=== PATIENT | female | born 1980 | race Caucasian/White ===

== ENCOUNTER 2019-08-12 15:30 | Emergency (ER) | payer OTHER, SELFPAY ==
[2019-08-12 15:37] VITALS: BP 120/60; PULSE 83; RESP 20; TEMP 36.6; O2SAT 99
--- NOTE | 2019-08-12 15:50 | ED.URI ---
HPI - URI/Sore Throat General Chief Complaint: Upper Respiratory Infection Stated Complaint: ear pain/cough Time Seen by Provider: 08/12/19 15:50 Source: patient and RN notes reviewed History of Present Illness HPI Narrative: Patient is a 39-year-old female that presents the urgent care with complaints of right ear pressure for 2 days and postnasal drainage and morning cough since Thursday. Patient states that she has been using Tylenol [id number] for ear pressure. Patient states that she has a history of right ear rupture. Patient denies of any fever, chills, nausea, vomiting. Patient is taken loratadine 1 time since Thursday. Patient is also use warm compress to the right ear which did improve some of the pain. No other acute complaints. No acute distress noted. Patient read the plan of care. Related Data Home Medications Medication Instructions Recorded Confirmed acetazolamide 250 mg PO BID 01/28/19 08/12/19 buspirone 10 mg PO BID 01/28/19 08/12/19 venlafaxine [Effexor XR] 150 mg PO QPM 01/28/19 08/12/19 alendronate-vitamin D3 2,000 unit PO DAILY 04/21/19 08/12/19 Allergies Allergy/AdvReac Type Severity Reaction Status Date / Time amoxicillin Allergy Unknown Hives Verified 08/12/19 15:47 ciprofloxacin Allergy Unknown Swelling Verified 08/12/19 15:47 Penicillins Allergy Unknown Hives Verified 08/12/19 15:47 Review of Systems Review of Systems: Narrative: CONSTITUTIONAL: Denies fever, chills, or sweats. EYES: Denies visual changes, redness, or discharge. ENT: Reports of right otalgia and postnasal drainage CARDIOVASCULAR: Denies chest pain, palpitations, or edema. RESPIRATORY: Reports of morning cough without dyspnea GASTROINTESTINAL: Denies abdominal pain, nausea, vomiting, or diarrhea. GENITOURINARY: Denies dysuria or hematuria. SKIN: Denies rash or itching. MUSCULOSKELETAL: Denies back pain, joint pain, or myalgia. NEUROLOGIC: Denies headache, numbness, or weakness. All other systems reviewed are negative, except as documented in HPI. [facility] Social History Social History Smoking status: Current every day smoker Comments At the time of my signature, I reviewed and agree with the nursing past medical, surgical, social, and family history. There is no relevant family history pertinent to the patient complaint. Exam Narrative: Exam Narrative: GENERAL: This is a well-nourished, well-developed patient, in no apparent distress. HEAD: normocephalic, atraumatic. EYES: PERRL. Sclera clear/white. Vision is grossly intact. EARS: External ears normal, auditory canals clear and without drainage, moderate fluid noted behind right TM without otitis, left TMs normal without perforation. Hearing grossly intact. NOSE: External nose normal with no obvious nasal discharge, nares without redness, no rhinorrhea. THROAT: Mucous membranes moist, posterior pharynx clear. NECK: Neck supple CARDIOVASCULAR: Regular rate and rhythm without murmurs, gallops, or rubs. RESPIRATORY: Clear to auscultation. Breath sounds equal bilaterally. No wheezes, rales, or rhonchi. SKIN: warm, intact with no suspicious lesions or rash, good texture and turgor. NEURO: awake, alert, and oriented to person, place and time. There were no obvious focal neurologic abnormalities. EXTREMITIES: No clubbing, cyanosis, or edema. Course Vital Signs Vital signs: Vital Signs Temperature 97.8 F 08/12/19 15:37 Pulse Rate 83 08/12/19 15:37 Respiratory Rate 20 08/12/19 15:37 Blood Pressure 120/60 08/12/19 15:37 Pulse Oximetry 99 08/12/19 15:37 Temperature 97.8 F 08/12/19 15:37 Pulse Rate 83 08/12/19 15:37 Respiratory Rate 20 08/12/19 15:37 Blood Pressure 120/60 08/12/19 15:37 Pulse Oximetry 99 08/12/19 15:37 Reviewed MDM - URI/Sore Throat MDM Narrative Medical decision making narrative: Advised the patient to use Flonase and loratadine for symptom relief. If you develop
== END 2019-08-12 16:09 | disposition home or self-care (01) ==
PROVIDERS: Emergency Provider Nurse Practitioner Family; PCP Internal Medicine
DX: H92.02 Otalgia, left ear (principal); F17.290 Nicotine dependence, other tobacco product, uncomplicated
CPT/HCPCS: 99213; G0463

== ENCOUNTER 2019-11-07 09:59 | Emergency (ER) | payer OTHER, SELFPAY ==
[2019-11-07 10:05] VITALS: BP 106/70; PULSE 96; RESP 16; TEMP 36.7; O2SAT 100
--- NOTE | 2019-11-07 10:13 | ED.ABDPAIN ---
HPI - Abdominal Pain General Chief Complaint: Abdominal Pain Stated Complaint: sharp stomach pain/no appetite/diarrhea Time Seen by Provider: 11/07/19 10:13 Source: patient and RN notes reviewed Mode of arrival: ambulatory Limitations: no limitations History of Present Illness HPI narrative: This is a 39 years old female presents to the office for an evaluation of abdominal pain and diarrhea since last night. Pain started approximately in the evening, described as sharp shooting pain with decreased appetite and diarrhea. She woke up this morning with less of pain described as dull type pain. However she still have diarrhea so she took an antidiarrhea and went to work. Her boss sent her here to get a work note. Her last meal was yesterday breakfast with toast and butter. She works at [employer]; so she eats there as well. Her boyfriend is sick with similar symptoms. Denies eating out or direct contact with COVID positive people. Related Data Home Medications Medication Instructions Recorded Confirmed acetazolamide 250 mg PO BID 01/28/19 08/12/19 buspirone 10 mg PO BID 01/28/19 08/12/19 venlafaxine [Effexor XR] 150 mg PO QPM 01/28/19 08/12/19 gabapentin 300 mg PO HS 11/07/19 11/07/19 Allergies Allergy/AdvReac Type Severity Reaction Status Date / Time amoxicillin Allergy Unknown Hives Verified 11/07/19 10:14 ciprofloxacin Allergy Unknown Swelling Verified 11/07/19 10:14 Penicillins Allergy Unknown Hives Verified 11/07/19 10:14 Review of Systems Review of Systems: Narrative: CONSTITUTIONAL: Denies fever. Reports feeling tired and wants to lay down. ENT: Denies rhinorrhea, congestion, sore throat, otalgia. CARDIOVASCULAR: Denies chest pain, palpitation RESPIRATORY: Denies dyspnea, wheezing, cough GASTROINTESTINAL: Reports abdominal pain, nausea, diarrhea; denies blood stools GENITOURINARY: Denies urinary symptoms or discharge SKIN: Denies rash MUSCULOSKELETAL: Denies acute back pain NEUROLOGIC: Denies lightheaded/near syncope All other systems reviewed are negative, except as documented in HPI. [facility] Past Medical History Medical History Anxiety Mastitis Migraines PTSD (post-traumatic stress disorder) Surgical History Surgical History H/O Spinal surgery C3-4 fusion Hx of appendectomy Family History Family History Unknown No problems noted. Social History Social History Smoking status: Current every day smoker Comments At time of signature, I agree with nursing past medical, surgical, social and family history. There is no relevant family history pertinent to the presenting complaint. Exam Narrative: Exam Narrative: GENERAL: This is a well-nourished, well-developed patient, in no apparent distress. CARDIOVASCULAR: Regular rate and rhythm without murmurs, gallops, or rubs. RESPIRATORY: Clear to auscultation. Breath sounds equal bilaterally. No wheezes, rales, or rhonchi. GASTROINTESTINAL: Abdomen soft; tenderness throughout, nondistended. Bowel sounds are active. No hepato-splenomegaly, or palpable masses. NO guarding. SKIN: warm, intact with no suspicious lesions or rash, good texture and turgor. NEURO: awake, alert, and oriented to person, place and time. There were no obvious focal neurologic abnormalities. Steady gait [place] Scale Eye Opening: Spontaneous 4 [place] Scale Motor: Obeys Commands 6 [place] Scale Verbal: Oriented 5 Course Vital Signs Vital signs: Vital Signs Temperature 98.1 F 11/07/19 10:05 Pulse Rate 96 11/07/19 10:05 Respiratory Rate 16 11/07/19 10:05 Blood Pressure 106/70 11/07/19 10:05 Pulse Oximetry 100 11/07/19 10:05 Temperature 98.1 F 11/07/19 10:05 Pulse Rate 96 11/07/19 10:05 Respiratory Rate
== END 2019-11-07 10:31 | disposition home or self-care (01) ==
PROVIDERS: Emergency Provider Nurse Practitioner; PCP Internal Medicine
DX: R19.7 Diarrhea, unspecified (principal); F17.200 Nicotine dependence, unspecified, uncomplicated; F41.9 Anxiety disorder, unspecified; F43.10 Post-traumatic stress disorder, unspecified
CPT/HCPCS: 99211; G0463

== ENCOUNTER 2021-04-23 09:24 | Emergency (ER) | payer OTHER, SELFPAY ==
--- NOTE | ~2021-04-23 | XR_ITS ---
EXAMINATION: XR chest 2V EXAM DATE: 04/23/2021 10:08 INDICATION: Bacterial Pnuemonia Early Mar. (+)Covid Mid Apr.20 . TECHNIQUE: Frontal and lateral projections of the chest obtained and reviewed. Comparison is made to prior examination from 04/21/2019. FINDINGS: The lungs are clear. There are no pleural effusions. The cardiomediastinal silhouette is within normal limits. There is no pneumothorax suspected. The bones and soft tissues are unremarkab le. Cervical fusion hardware. IMPRESSION: No acute cardiopulmonary findings. Reviewed, dictated and finalized at location A. [employer]
[2021-04-23 09:34] VITALS: BP 119/63; PULSE 92; RESP 16; TEMP 36.7; O2SAT 100
--- NOTE | 2021-04-23 09:47 | ED.URI ---
HPI - URI/Sore Throat General Chief Complaint: Upper Respiratory Infection Stated Complaint: Ear Pain/Chest Congestion Time Seen by Provider: 04/23/21 09:53 Source: patient and RN notes reviewed Mode of arrival: ambulatory Limitations: no limitations History of Present Illness HPI Narrative: 41-year-old female with history of asthma presents with concern for ear pain. She also reports continued cough and shortness of breath. Reports she had pneumonia in the beginning of March, was not diagnosed with Covid in the middle of March. Reports she has had symptoms all month long. She reports she has been using her albuterol inhaler 3 times a day at least in her nebulizer 2 times a day, she last used her nebulizer this morning at 6 AM. She denies nasal congestion or rhinorrhea. MD elicited complaint: cough and sore throat Related Data Home Medications Medication Instructions Recorded Confirmed buspirone mg 04/23/21 diclofenac sodium PO 04/23/21 gabapentin 04/23/21 sumatriptan succinate mg PO 04/23/21 trazodone 04/23/21 venlafaxine mg PO 04/23/21 venlafaxine mg PO 04/23/21 Allergies Allergy/AdvReac Type Severity Reaction Status Date / Time amoxicillin Allergy Unknown Hives Verified 04/23/21 09:35 ciprofloxacin Allergy Unknown Swelling Verified 04/23/21 09:35 Penicillins Allergy Unknown Hives Verified 04/23/21 09:35 Review of Systems Review of Systems: CONSTITUTIONAL: Reports malaise. Denies chills, sweats, or fever. EYES: Denies visual changes, redness, or discharge. ENT: Denies rhinorrhea, congestion, sinus pain, and sore throat. Reports right ear pain, decreased hearing CARDIOVASCULAR: Denies chest pain, palpitations, or edema. RESPIRATORY: Reports cough, chest congestion, dyspnea. GASTROINTESTINAL: Denies abdominal pain, nausea, vomiting, diarrhea SKIN: Denies rash or itching. MUSCULOSKELETAL: Denies myalgia. NEUROLOGIC: Denies headache. All systems reviewed & are unremarkable except as noted in HPI and below PMFSH Past Medical History Medical History (Updated 04/23/21 @ 10:40 by Gracie Galeas NP) Anxiety Mastitis Migraines PTSD (post-traumatic stress disorder) Surgical History Surgical History H/O Spinal surgery C3-4 fusion Hx of appendectomy Family History Family History Unknown No problems noted. Social History Social History Smoking status: Current every day smoker Comments At time of signature, agree with nursing past medical, surgical, social and family history. There is no relevant family history pertinent to the presenting complaint Exam Narrative: GENERAL: Well-appearing, well-nourished, and in no acute distress. HEAD: Normocephalic EYES: PERRLA, conjunctivae clear ENT: Nares clear, clear discharge. Mucous membranes moist. TM pearly de jesus with sharp light reflex bilaterally; no tragal tenderness. Oropharynx not erythematous without lesions. Tonsils not enlarged and without exudate, no drooling, no hoarseness, no trismus, uvula midline. NECK: Supple. No lymphadenopathy CHEST: Scattered rhonchi, scattered inspiratory and expiratory wheeze. Breath sounds equal. No rales, or stridor. Exertional and conversational dyspnea, upper airway rhonchi HEART: Regular rate and rhythm. No murmur heard. SKIN: Warm, dry, no rash. NEURO: Alert and oriented x3. PSYCH: Normal mood and affect Course Course Emergency Course: Patient is aware of diagnosis, understands and agrees to treatment plan. Anticipatory guidance given. Patient agrees to follow-up as directed and is aware of reasons to seek care at the emergency department. Portions of this record may have been created with voice recognition software Level of Care: Express Care Visit Reevaluation(s) Reevaluation #1: Lung sounds proved, aeration improved. Patient's conv
[2021-04-23 10:15] VITALS: PULSE 98; RESP 30; O2SAT 98
[2021-04-23] MEDS: methylPREDNISolone SOD SUCC 125 MG VIAL IM (10:20)
[2021-04-23] MEDS: ALBUTEROL SULFATE NEB 2.5 MG/3 ML INH INHALATION (10:24)
[2021-04-23] MEDS: IPRATROPIUM BR 0.02% INH SOLN 0.5 MG/2.5 ML VIAL INHALATION (10:24)
[2021-04-23 10:50] VITALS: PULSE 99; RESP 20; O2SAT 99
== END 2021-04-23 10:50 | disposition home or self-care (01) ==
PROVIDERS: Emergency Provider Nurse Practitioner; PCP Internal Medicine
DX: J40 Bronchitis, not specified as acute or chronic (principal); J45.909 Unspecified asthma, uncomplicated; F41.9 Anxiety disorder, unspecified; F17.200 Nicotine dependence, unspecified, uncomplicated
CPT/HCPCS: 71046; 94640; 96372; 99213; G0463; J2930

== ENCOUNTER 2022-03-03 12:57 | Emergency (ER) | payer OTHER, SELFPAY ==
[2022-03-03 13:31] VITALS: BP 121/75; PULSE 88; RESP 18; TEMP 36.3; O2SAT 99
--- NOTE | 2022-03-03 13:34 | ED.URI ---
HPI - URI/Sore Throat General Chief Complaint: Upper Respiratory Infection Stated Complaint: ears congestion Time Seen by Provider: 03/03/22 13:34 History of Present Illness HPI Narrative: Patient presents with right ear discomfort cough and congestion. Patient denies any shortness of breath no fever patient is a smoker and states she has been taking Tylenol cold and Sinus [id number] for her symptoms. Patient reports her symptoms started approximately 7 days ago. Related Data Home Medications Medication Instructions Recorded Confirmed buspirone 15 mg tablet 15 mg PO BID 04/23/21 03/03/22 diclofenac sodium 75 mg 75 mg PO DAILY 04/23/21 03/03/22 tablet,delayed release venlafaxine 150 mg 150 mg PO DAILY 04/23/21 03/03/22 capsule,extended release 24 hr venlafaxine 75 mg capsule,extended 75 mg PO DAILY 04/23/21 03/03/22 release 24 hr acetazolamide 250 mg tablet 250 mg BID 03/03/22 03/03/22 Allergies Allergy/AdvReac Type Severity Reaction Status Date / Time amoxicillin Allergy Unknown Hives Verified 03/03/22 13:28 ciprofloxacin Allergy Unknown Swelling Verified 03/03/22 13:28 Penicillins Allergy Unknown Hives Verified 03/03/22 13:28 Review of Systems Review of Systems: CONSTITUTIONAL: Denies chills, or sweats. Reports fever and generalized body aches EYES: Denies visual changes, redness, or discharge. ENT: Denies otalgia. Reports nasal congestion runny nose and sore throat CARDIOVASCULAR: Denies chest pain, palpitations, or edema. RESPIRATORY: Denies dyspnea. Reports occasional cough GASTROINTESTINAL: Denies abdominal pain, nausea, vomiting, or diarrhea. GENITOURINARY: Denies dysuria or hematuria. SKIN: Denies rash or itching. MUSCULOSKELETAL: Denies back pain, joint pain, or myalgia. Reports generalized body aches NEUROLOGIC: Denies headache, numbness, or weakness. PSYCHIATRIC: Denies anxiety or depression. [facility] Past Medical History Medical History (Updated 03/03/22 @ 13:40 by SHANDA Castro) Anxiety Mastitis Migraines PTSD (post-traumatic stress disorder) Surgical History Surgical History H/O Spinal surgery C3-4 fusion Hx of appendectomy Family History Family History Unknown No problems noted. Social History Social History Smoking status: Current every day smoker Comments At time of signature, agree with nursing past medical, surgical, social and family history. There is no relevant family history pertinent to the presenting complaint Exam Narrative: The patient is a well-developed, well-nourished in no acute distress. SKIN: Skin is warm and dry without erythema, swelling or exudate. There is good turgor. No tenting. HEAD: Atraumatic. Normocephalic. No temporal or scalp tenderness. EYES: Moist and bright. Sclera and conjunctivae normal. No discharge. PERRLA. Extraocular motions intact. Gross visual acuity intact. EARS: Pinna is normal shape and contour. Clear external auditory canals. TM pearly [place] with good cone of light, no erythema or suppuration. Bilateral cerumen noted no gross hearing deficit. NOSE: pink, moist mucosa with good air movement. Clear rhinorrhea without nasal flaring. Septum midline. Mild maxillary sinus pressure and tenderness Mouth: moist mucous membranes. THROAT; mild erythema noted to posterior oropharynx with moderate postnasal drainage. Without exudate or ulceration.. Uvula midline. Normal movement of soft palate. NECK: Supple and nontender with full range of motion without discomfort. No meningeal signs. LUNGS: Equal and bilateral breath sounds without wheezes, rales or rhonchi. CHEST: The chest wall is without retractions or use of accessory muscles. HEART: Has a regular rate and rhythm without murmur, gallops, click or rub. ABDOMEN: Soft, nontender with positive active bowel azam
== END 2022-03-03 13:49 | disposition home or self-care (01) ==
PROVIDERS: Emergency Provider Nurse Practitioner Family; PCP Internal Medicine
DX: J32.9 Chronic sinusitis, unspecified (principal); J40 Bronchitis, not specified as acute or chronic; F41.9 Anxiety disorder, unspecified; F17.290 Nicotine dependence, other tobacco product, uncomplicated
CPT/HCPCS: 99213; G0463

== ENCOUNTER 2022-08-25 14:46 | Emergency (ER) | payer OTHER, SELFPAY ==
[2022-08-25 14:57] VITALS: BP 120/67; PULSE 90; RESP 18; TEMP 36.5; O2SAT 100
--- NOTE | 2022-08-25 15:59 | ED.URI ---
HPI - URI/Sore Throat General Chief Complaint: Upper Respiratory Infection Stated Complaint: Sore Throat Time Seen by Provider: 08/25/22 15:59 Source: patient, RN notes reviewed and old records reviewed Mode of arrival: ambulatory Limitations: no limitations History of Present Illness HPI Narrative: 42-year-old female presents to [facility] with complaints of sore throat and headache for 2 days has felt feverish and has noted white spots on her tonsils. Patient reports that she took home COVID test that was negative. Patient has been taking Ibuprofen for her discomfort and fevers. Patient denies any cough, ear pain or any acute cough or shortness of breath. MD elicited complaint: sore throat Onset (ago): day(s) (2) Pain scale (0-10): 5 Treatments prior to arrival: ibuprofen Related Data Home Medications Medication Instructions Recorded Confirmed buspirone 15 mg tablet 15 mg PO BID 04/23/21 08/25/22 diclofenac sodium 75 mg 75 mg PO DAILY 04/23/21 08/25/22 tablet,delayed release venlafaxine 150 mg 150 mg PO DAILY 04/23/21 08/25/22 capsule,extended release 24 hr venlafaxine 75 mg capsule,extended 75 mg PO DAILY 04/23/21 08/25/22 release 24 hr acetazolamide 250 mg tablet 250 mg BID 03/03/22 08/25/22 gabapentin 300 mg capsule 300 mg PO HS 08/25/22 08/25/22 trazodone 150 mg tablet 150 mg PO HS PRN Sleep 08/25/22 08/25/22 Allergies Allergy/AdvReac Type Severity Reaction Status Date / Time amoxicillin Allergy Unknown Hives Verified 08/25/22 15:24 ciprofloxacin Allergy Unknown Swelling Verified 08/25/22 15:24 Penicillins Allergy Unknown Hives Verified 08/25/22 15:24 Review of Systems Review of Systems: CONSTITUTIONAL: Reportsmalaise, chills, sweats, or fever. EYES: Denies visual changes, redness, or discharge. ENT: Reports rhinorrhea, congestion,no sinus pain,no otalgia positive for sore throat. CARDIOVASCULAR: Denies chest pain, palpitations, or edema. RESPIRATORY: Reports no cough.? Denies dyspnea. GASTROINTESTINAL: Denies abdominal pain, nausea, vomiting, diarrhea SKIN: Denies rash or itching. MUSCULOSKELETAL: Denies myalgia. NEUROLOGIC: Reports headache. All systems reviewed & are unremarkable except as noted in HPI and below PMFSH Past Medical History Medical History Anxiety Mastitis Migraines PTSD (post-traumatic stress disorder) Surgical History Surgical History H/O Spinal surgery C3-4 fusion Hx of appendectomy Family History Family History Unknown No problems noted. Social History Social History Smoking status: Current every day smoker Comments At time of signature, agree with nursing past medical, surgical, social and family history. There is no relevant family history pertinent to the presenting complaint Exam Narrative: GENERAL: Well-appearing, well-nourished, and in no acute distress. HEAD: Normocephalic EYES: PERRLA, conjunctivae clear ENT: Nares clear, turbinates edematous and erythematous, clear discharge. Mucous membranes moist. TM pearly de jesus with dull light reflex bilaterally; no tragal tenderness. Oropharynx erythematous without lesions. Tonsils red enlarged and with white exudate, no drooling, no hoarseness, no trismus, uvula midline. some post nasal drainage NECK: Supple. lymphadenopathy CHEST: Clear to auscultation, breath sounds equal. No wheezing, rhonchi, rales, or stridor. No respiratory distress, speaks in full sentences. SAO2 100% on room air HEART: Regular rate and rhythm. No murmur heard. SKIN: Warm, dry, no rash. NEURO: Alert and oriented x3. PSYCH: Normal mood and affect Course Course Emergency Course: Patient is aware of diagnosis, understands and agrees to treatment plan.? Tracey garcia
== END 2022-08-25 16:10 | disposition home or self-care (01) ==
PROVIDERS: Emergency Provider Registered Nurse; PCP Internal Medicine
DX: J02.0 Streptococcal pharyngitis (principal); F17.200 Nicotine dependence, unspecified, uncomplicated; F41.9 Anxiety disorder, unspecified; F43.10 Post-traumatic stress disorder, unspecified
CPT/HCPCS: 87880; 99213; G0463

== ENCOUNTER 2022-10-25 17:10 | Emergency (ER) | payer OTHER, SELFPAY ==
[2022-10-25 17:17] VITALS: BP 125/87; PULSE 79; RESP 20; TEMP 37.2; O2SAT 100
--- NOTE | 2022-10-25 17:26 | ED.DIZZY ---
HPI - Dizziness General Chief Complaint: Dizziness Stated Complaint: Headache;dizzy;nausea History of Present Illness HPI Narrative: Patient presents with dizziness, headache Clear liquids for the next 8-10 hours, then advance to a bland diet as tolerated A bland diet can consist of--BRAT diet which is bananas, rice, applesauce, and toast Avoid fried, greasy, fatty, fried foods Avoid caffeine, nicotine, and alcohol Return to your regular diet in the next 3-4 days Medication as directed for nausea and vomiting -If you have any worsening of symptoms or any other concerns please go to the ED immediately.. 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 Patient states she woke up this morning feeling poorly and missed work. Patient states she does not feel she can go to work tomorrow either Related Data Home Medications Medication Instructions Recorded Confirmed buspirone 15 mg tablet 15 mg PO BID 04/23/21 10/25/22 diclofenac sodium 75 mg 75 mg PO DAILY 04/23/21 10/25/22 tablet,delayed release venlafaxine 150 mg 150 mg PO DAILY 04/23/21 10/25/22 capsule,extended release 24 hr venlafaxine 75 mg capsule,extended 75 mg PO DAILY 04/23/21 10/25/22 release 24 hr acetazolamide 250 mg tablet 250 mg BID 03/03/22 10/25/22 gabapentin 300 mg capsule 300 mg PO HS 08/25/22 10/25/22 trazodone 150 mg tablet 150 mg PO HS PRN Sleep 08/25/22 10/25/22 Allergies Allergy/AdvReac Type Severity Reaction Status Date / Time amoxicillin Allergy Unknown Hives Verified 10/25/22 17:25 ciprofloxacin Allergy Unknown Swelling Verified 10/25/22 17:25 Penicillins Allergy Unknown Hives Verified 10/25/22 17:25 Review of Systems Review of Systems: CONSTITUTIONAL: Denies chills, or sweats. Reports fever and generalized body aches EYES: Denies visual changes, redness, or discharge. ENT: Denies otalgia. Reports nasal congestion runny nose and sore throat CARDIOVASCULAR: Denies chest pain, palpitations, or edema. RESPIRATORY: Denies dyspnea. Reports occasional cough GASTROINTESTINAL: Denies abdominal pain, nausea, vomiting, or diarrhea. GENITOURINARY: Denies dysuria or hematuria. SKIN: Denies rash or itching. MUSCULOSKELETAL: Denies back pain, joint pain, or myalgia. Reports generalized body aches NEUROLOGIC: Denies headache, numbness, or weakness. PSYCHIATRIC: Denies anxiety or depression. [facility] Past Medical History Medical History (Updated 10/25/22 @ 17:31 by SHANDA Castro) Anxiety Mastitis Migraines PTSD (post-traumatic stress disorder) Surgical History Surgical History H/O Spinal surgery C3-4 fusion Hx of appendectomy Family History Family History Unknown No problems noted. Social History Social History Smoking status: Current every day smoker Comments At time of signature, agree with nursing past medical, surgical, social and family history. There is no relevant family history pertinent to the presenting complaint Exam Narrative: The patient is a well-developed, well-nourished in no acute distress. SKIN: Skin is warm and dry without erythema, swelling or exudate. There is good turgor. No tenting. HEAD: Atraumatic. Normocephalic. No temporal or scalp tenderness. EYES: Moist and bright. Sclera and conjunctivae normal. No discharge. PERRLA. Extraocular motions intact. Gross visual acuity intact. EARS: Pinna is normal shape and contour. Clear external auditory canals. TM pearly [place] with good cone of light, no erythema or suppuration. Bilateral cerumen noted no gross hearing deficit. NOSE: pink, moist mucosa with good air movement. Clear rhinorrhea without nasal flaring. Septum midline. Mouth: moist mucous membranes. THROAT; mild erythema noted to po
== END 2022-10-25 17:35 | disposition home or self-care (01) ==
PROVIDERS: Emergency Provider Nurse Practitioner Family; PCP Internal Medicine
DX: E86.0 Dehydration (principal); F17.200 Nicotine dependence, unspecified, uncomplicated; F41.9 Anxiety disorder, unspecified; F43.10 Post-traumatic stress disorder, unspecified
CPT/HCPCS: 99213; G0463

== ENCOUNTER 2022-12-17 16:18 | Emergency (ER) | payer OTHER, SELFPAY ==
[2022-12-17 16:25] VITALS: BP 126/81; PULSE 78; RESP 22; TEMP 36.6; O2SAT 99
--- NOTE | 2022-12-17 16:30 | ED.URI ---
HPI - URI/Sore Throat General Chief Complaint: Upper Respiratory Infection Stated Complaint: Chest Congestion Time Seen by Provider: 12/17/22 16:34 Source: patient and RN notes reviewed Mode of arrival: ambulatory Limitations: no limitations History of Present Illness HPI Narrative: 42-year-old female presents with concern for cough, wheezing, chest congestion. Reports she started feeling sick about 3 days ago, symptoms got worse today. She denies fever. Reports history of asthma and bronchitis. MD elicited complaint: cough Related Data Allergies Allergy/AdvReac Type Severity Reaction Status Date / Time amoxicillin Allergy Unknown Hives Verified 12/17/22 16:38 ciprofloxacin Allergy Unknown Swelling Verified 12/17/22 16:38 Penicillins Allergy Unknown Hives Verified 12/17/22 16:38 Review of Systems Review of Systems: CONSTITUTIONAL: Reports malaise. Denies chills, sweats, or fever. EYES: Denies visual changes, redness, or discharge. ENT: Reports rhinorrhea, congestion, sore throat. Denies sinus pain, otalgia CARDIOVASCULAR: Denies chest pain, palpitations, or edema. RESPIRATORY: Reports cough, chest congestion, dyspnea. GASTROINTESTINAL: Denies abdominal pain, nausea, vomiting, diarrhea SKIN: Denies rash or itching. MUSCULOSKELETAL: Reports myalgia. NEUROLOGIC: Denies headache. All systems reviewed & are unremarkable except as noted in HPI and below PMFSH Past Medical History Medical History (Updated 12/17/22 @ 16:48 by Gracie Galeas NP) Anxiety Mastitis Migraines PTSD (post-traumatic stress disorder) Surgical History Surgical History H/O Spinal surgery C3-4 fusion Hx of appendectomy Family History Family History Unknown No problems noted. Social History Social History Smoking status: Current every day smoker Comments At time of signature, agree with nursing past medical, surgical, social and family history. There is no relevant family history pertinent to the presenting complaint Exam Narrative: GENERAL: Nontoxic-appearing and in no acute distress. HEAD: Normocephalic EYES: PERRLA, conjunctivae clear ENT: Nares clear. Mucous membranes moist. TM pearly de jesus with dull light reflex bilaterally; no tragal tenderness. Oropharynx not erythematous without lesions. Tonsils not enlarged and without exudate, no drooling, no hoarseness, no trismus, uvula midline. NECK: Supple. No lymphadenopathy CHEST: Scattered expiratory and inspiratory wheeze with scattered rhonchi, breath sounds equal. No wheezing, rhonchi, rales, or stridor. No respiratory distress, speaks in full sentences. Hoarse voice HEART: Regular rate and rhythm. No murmur heard. SKIN: Warm, dry, no rash. NEURO: Alert and oriented x3. PSYCH: Normal mood and affect Course Course Emergency Course: Patient is aware of diagnosis, understands and agrees to treatment plan. Anticipatory guidance given. Patient agrees to follow-up as directed and is aware of reasons to seek care at the emergency department. Portions of this record may have been created with voice recognition software Level of Care: Express Care Visit Reevaluation(s) Reevaluation #1: Aeration wheezing improved after DuoNeb Date: 12/17/22 Time: 17:05 Vital Signs Vital signs: Reviewed. MDM - URI/Sore Throat MDM Narrative Medical decision making narrative: Differential diagnosis considered: Dhillon virus, strep pharyngitis, allergic rhinitis, upper respiratory tract infection, sinusitis, rhinosinusitis, nasopharyngitis. viral pharyngitis, otitis media, otitis externa, pneumonia, bronchitis, viral cough syndrome, viral syndrome, and influenza. Exam findings show no acute concerns or changes; patient is non-toxic appearing and is in no distress. Patient is appropriate for outpatient treatment and follo
[2022-12-17] MEDS: IPRATROPIUM BR 0.02% INH SOLN 0.5 MG/2.5 ML VIAL INHALATION (16:43)
[2022-12-17] MEDS: ALBUTEROL SULFATE NEB 2.5 MG/3 ML INH INHALATION (16:43)
== END 2022-12-17 17:10 | disposition home or self-care (01) ==
PROVIDERS: Emergency Provider Nurse Practitioner; PCP Internal Medicine
DX: J40 Bronchitis, not specified as acute or chronic (principal); F17.200 Nicotine dependence, unspecified, uncomplicated
CPT/HCPCS: 94640; 99213; G0463

== ENCOUNTER 2023-05-20 11:11 | Emergency (ER) | payer OTHER, SELFPAY ==
--- NOTE | ~2023-05-20 | XR_ITS ---
EXAMINATION: XR chest 2V DATE: 05/20/2023 11:48 INDICATION: Shortness of breath, cough and fever TECHNIQUE: PA and lateral views of the chest are obtained. COMPARISON: 04/23/2021 FINDINGS: The lungs are free of acute opacities. No pleural effusion or pneumothorax. The cardiomedia stinal silhouette is normal. There is mild thoracic spondylosis. There are partially imaged changes o f anterior fusion in the cervical spine. IMPRESSION: 1. No acute cardiopulmonary abnormality. Reviewed, dictated and finalized at location B[facility]
--- NOTE | 2023-05-20 11:14 | ED.URI ---
HPI - URI/Sore Throat General Chief Complaint: Upper Respiratory Infection Stated Complaint: Body Aches/Headache/Shortness of Breath Source: patient and RN notes reviewed Mode of arrival: ambulatory Limitations: no limitations History of Present Illness HPI Narrative: Patient is a 43-year-old female who presents to the [facility] with complaints coughing congestion for the last few days. Patient reports a frequent nonproductive cough. She states that she has also been experiencing intermittent shortness of breath. She has history of asthma and states that she has been taking her albuterol inhaler as directed With minimal relief. Patient also reports nasal congestion and headache. She denies sore throat. Reports generalized body aches and chills. States that she had a fever of 100? F night. She denies chest pain currently. She has auditory wheezes upon arrival. 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 Related Data Allergies Allergy/AdvReac Type Severity Reaction Status Date / Time amoxicillin Allergy Unknown Hives Verified 12/17/22 16:38 ciprofloxacin Allergy Unknown Swelling Verified 12/17/22 16:38 Penicillins Allergy Unknown Hives Verified 12/17/22 16:38 Review of Systems Review of Systems: CONSTITUTIONAL: Reports fever and chills. EYES: Denies visual changes, redness, or discharge. ENT: Denies otalgia and sore throat. Reports nasal congestion. CARDIOVASCULAR: Denies chest pain, palpitations, or edema. RESPIRATORY: Reports cough and dyspnea. GASTROINTESTINAL: Denies abdominal pain, nausea, vomiting, or diarrhea. GENITOURINARY: Denies dysuria or hematuria. SKIN: Denies rash or itching. MUSCULOSKELETAL: Denies back pain, joint pain. Reports myalgia. NEUROLOGIC: Reports headache but denies numbness and weakness. Pertinent positives per HPI. [facility] Past Medical History Medical History (Updated 05/20/23 @ 12:02 by Sangeeta Campos APRN) Anxiety Mastitis Migraines PTSD (post-traumatic stress disorder) Surgical History Surgical History H/O Spinal surgery C3-4 fusion Hx of appendectomy Family History Family History Unknown No problems noted. Social History Social History Smoking status: Current every day smoker Comments At the time of my signature, I reviewed and agree with the nursing past medical, surgical, social, and family history. There is no relevant family history pertinent to the patient complaint. Exam Narrative: GENERAL: This is a well-nourished, well-developed patient, in no apparent distress. HEAD: normocephalic, atraumatic. EYES: Sclera clear/white. Vision is grossly intact. EARS: External ears normal, auditory canals clear and without drainage, TMs normal without perforation. Hearing grossly intact. NOSE: External nose normal with no obvious nasal discharge, nares without redness, no rhinorrhea. THROAT: Mucous membranes moist, posterior pharynx clear. NECK: Neck supple, non-tender without lymphadenopathy, masses or thyromegaly. CARDIOVASCULAR: Regular rate and rhythm without murmurs, gallops, or rubs. RESPIRATORY: Wheezes present bilaterally. GASTROINTESTINAL: Abdomen soft, non-tender, nondistended. Bowel sounds are active. No hepato-splenomegaly, or palpable masses. No guarding. SKIN: warm, intact with no suspicious lesions or rash, good texture and turgor. NEURO: awake, alert, and oriented to person, place and time. There were no obvious focal neurologic abnormalities. Course Course Level of Care: Express Care Visit Vital Signs Vital signs: Vital Signs Temperature 97 F L 05/20/23 11:18 Pulse Rate 85 05/20/23 11:18 Respiratory Rate 20 05/20/23 11:18 Blood Pressure 144/82 H 05/20/23 11:18 Pulse Oximetry 98 05/20/23 11:18
[2023-05-20 11:18] VITALS: BP 144/82; PULSE 85; RESP 20; TEMP 36.1; O2SAT 98
[2023-05-20 11:24] VITALS: BP 144/82; PULSE 85; RESP 20; TEMP 36.1; O2SAT 98
[2023-05-20 11:50] VITALS: PULSE 80; RESP 22; O2SAT 96
[2023-05-20] MEDS: ALBUTEROL SULFATE NEB 2.5 MG/3 ML INH INHALATION (11:50)
[2023-05-20] MEDS: methylPREDNISolone SOD SUCC 125 MG VIAL 80 MG IM (11:53)
[2023-05-20 12:00] VITALS: PULSE 84; RESP 22; O2SAT 96
== END 2023-05-20 12:12 | disposition home or self-care (01) ==
PROVIDERS: Emergency Provider Nurse Practitioner; PCP Internal Medicine
DX: J45.901 Unspecified asthma with (acute) exacerbation (principal)
CPT/HCPCS: 71046; 87426; 87804; 94640; 96372; 99213; G0463; J2930

== ENCOUNTER 2023-08-04 16:09 | Emergency (ER) | payer OTHER, SELFPAY ==
[2023-08-04 16:15] VITALS: BP 119/74; PULSE 77; RESP 18; TEMP 36.4; O2SAT 100
--- NOTE | 2023-08-04 16:46 | ED.GENADULT ---
HPI - General Adult General Chief complaint: Upper Respiratory Infection Stated complaint: Head an Chest Congestion, Sore Throat, Earache Source: patient Mode of arrival: ambulatory Limitations: no limitations History of Present Illness HPI narrative: Patient presents for evaluation of sick symptoms since yesterday. Symptoms include sinus congestion, thick mucopurulent discharge from the nares, mild sore throat, productive cough of yellow/green sputum, fever, and nausea. No recent sick contacts to her knowledge. She has been taking [id number] Tylenol and ibuprofen for the fever. She is a current every day smoker but is attempting to quit. Related Data Allergies Allergy/AdvReac Type Severity Reaction Status Date / Time amoxicillin Allergy Unknown Hives Verified 08/04/23 16:21 ciprofloxacin Allergy Unknown Swelling Verified 08/04/23 16:21 Penicillins Allergy Unknown Hives Verified 08/04/23 16:21 Review of Systems Review of Systems: CONSTITUTIONAL: Reports fever. Denies chills, or sweats. EYES: Denies visual changes, redness, or discharge. ENT: Reports sinus congestion, mucopurulent discharge from the nares, mild sore throat. Denies otalgia. CARDIOVASCULAR: Denies chest pain, palpitations, or edema. RESPIRATORY: Reports productive cough of yellow/green sputum. Reports mild chronic shortness of breath, unchanged. GASTROINTESTINAL: Reports nausea. Denies abdominal pain, vomiting, or diarrhea. GENITOURINARY: Denies dysuria or hematuria. SKIN: Denies rash or itching. MUSCULOSKELETAL: Denies back pain, joint pain, or myalgia. NEUROLOGIC: Denies headache, numbness, dizziness, or weakness. PSYCHIATRIC: Denies anxiety or depression. [facility] Past Medical History Medical History Anxiety Mastitis Migraines PTSD (post-traumatic stress disorder) Surgical History Surgical History H/O Spinal surgery C3-4 fusion Hx of appendectomy Family History Family History Unknown No problems noted. Social History Social History Smoking status: Current every day smoker Living arrangements: with family Gender identity (if verbalized by the patient): Female Spiritual care concerns: No Exam Narrative: GENERAL: Well-appearing, well-nourished, and in no acute distress. HEAD: Normocephalic, atraumatic. EYES: PERRLA and EOMI. ENT: Bilateral maxillary and frontal sinus tenderness. There is thick mucopurulent discharge in the nares. Mucous membranes moist. Oropharynx without tonsillar hypertrophy exudate or other lesions. Bilateral TMs pearly de jesus nonbulging NECK: Supple. No adenopathy or masses. No carotid bruits or JVD CHEST: Clear to auscultation. No respiratory distress. No wheezes rales or rhonchi HEART: Regular rate and rhythm. No murmur heard. Normal peripheral pulses. ABDOMEN: Soft, nontender, nondistended, normal active bowel sounds. EXTREMITIES: Normal range of motion. No edema. SKIN: Warm, dry, no rash. NEURO: No focal deficits. Alert and oriented x3. PSYCH: Normal mood and affect. Course Course Emergency Course: This is a 43-year-old female who presented for evaluation of sick symptoms. She meets criteria for acute bacterial sinusitis based upon presence of fever mucopurulent discharge. Will treat with doxycycline due to other drug allergies. Recommend smoking cessation. Increase hydration. [id number]-[id number] agents for symptom management. Follow up primary provider. Go to the ER for worsening symptoms. Patient in agreement of care. Level of Care: Express Care Visit Vital Signs Vital signs: Vital Signs Temperature 36.4 C 08/04/23 16:15 Pulse Rate 77 08/04/23 16:15 Respiratory Rate 18 08/04/23 16:15 Blood Pressure 119/74 08/04/23 16:15
== END 2023-08-04 16:39 | disposition home or self-care (01) ==
PROVIDERS: Emergency Provider Nurse Practitioner
DX: J32.0 Chronic maxillary sinusitis (principal); J32.1 Chronic frontal sinusitis; F17.210 Nicotine dependence, cigarettes, uncomplicated; F41.9 Anxiety disorder, unspecified
CPT/HCPCS: 99213; G0463

== ENCOUNTER 2023-11-18 12:56 | Emergency (ER) | payer OTHER, SELFPAY ==
[2023-11-18 13:00] VITALS: BP 121/84; PULSE 84; RESP 20; TEMP 36.6; O2SAT 100
--- NOTE | 2023-11-18 13:14 | ED.URI ---
HPI - URI/Sore Throat General Chief Complaint: Upper Respiratory Infection Stated Complaint: Headache/Runny Nose/Cough/Chest Congestioin Time Seen by Provider: 11/18/23 13:14 Source: patient Mode of arrival: ambulatory Limitations: no limitations History of Present Illness HPI Narrative: 43-year-old female presents with complaint cough, nasal congestion, fatigue and body aches since yesterday. Taking zshg-hev-[id number] Robitussin DM to treat cough. Patient has history of asthma. Currently does not have a primary care physician. Has been out of her inhaler for ?sometime ?. No chest pain or shortness of breath at this time. All systems reviewed and negative except as noted above. Related Data Allergies Allergy/AdvReac Type Severity Reaction Status Date / Time amoxicillin Allergy Unknown Hives Verified 11/18/23 13:10 ciprofloxacin Allergy Unknown Swelling Verified 11/18/23 13:10 Penicillins Allergy Unknown Hives Verified 11/18/23 13:10 Review of Systems Review of Systems: CONSTITUTIONAL: Denies fever, chills, or sweats.. Reports fatigue EYES: Denies visual changes, redness, or discharge. ENT: Reports rhinorrhea, congestion. Denies sore throat, or otalgia. CARDIOVASCULAR: Denies chest pain, palpitations, or edema. RESPIRATORY: Reports cough. Denies dyspnea. GASTROINTESTINAL: Denies abdominal pain, nausea, vomiting, or diarrhea. GENITOURINARY: Denies dysuria or hematuria. SKIN: Denies rash or itching. MUSCULOSKELETAL: Denies back pain, joint pain, or myalgia. NEUROLOGIC: Denies headache, numbness, or weakness. PSYCHIATRIC: Denies anxiety or depression. All other systems reviewed are negative, except as documented in HPI. PENDING SALE TO [facility] Past Medical History Medical History (Updated 11/18/23 @ 13:14 by Gabi Lobato NP) Anxiety Mastitis Migraines PTSD (post-traumatic stress disorder) Surgical History Surgical History H/O Spinal surgery C3-4 fusion Hx of appendectomy Family History Family History Unknown No problems noted. Social History Social History Smoking status: Current every day smoker Living arrangements: with family Gender identity (if verbalized by the patient): Female Spiritual care concerns: No Comments At time of signature, agree with nursing past medical, surgical, social and family history. There is no relevant family history pertinent to the presenting complaint. Exam Narrative: GENERAL: This is a well-nourished, well-developed patient, in no apparent distress. HEAD: normocephalic, atraumatic. EYES: PERRL. Sclera clear/white. Vision is grossly intact. EARS: External ears normal, auditory canals clear and without drainage, TMs normal without perforation. Hearing grossly intact. NOSE: External nose normal with no obvious nasal discharge, nares without redness, no rhinorrhea. THROAT: Mucous membranes moist, posterior pharynx clear. NECK: Neck supple, non-tender without lymphadenopathy, masses or thyromegaly. CARDIOVASCULAR: Regular rate and rhythm without murmurs, gallops, or rubs. RESPIRATORY: Mildly coarse throughout all lung angel. Breath sounds equal bilaterally. No wheezes, rales, or rhonchi. SKIN: warm, Dry, intact with no suspicious lesions or rash, good texture and turgor. NEURO: awake, alert, and oriented to person, place and time. There were no obvious focal neurologic abnormalities. EXTREMITIES: No joint tenderness, effusion, or edema noted. Course Course Level of Care: Express Care Visit Vital Signs Vital signs: Vital Signs Temperature 36.6 C 11/18/23 13:00 Pulse Rate 84 11/18/23 13:00 Respiratory Rate 20 11/18/23 13:00 Blood Pressure 121/84 11/18/23 13:00 Pulse Oximetry 100 11/18/23 13:00 Oxygen Delivery Room Air 11/18/23 13:00 Temperature 36.6
== END 2023-11-18 13:15 | disposition home or self-care (01) ==
PROVIDERS: Emergency Provider Nurse Practitioner Family
DX: U07.1 COVID-19 (principal); F17.200 Nicotine dependence, unspecified, uncomplicated
CPT/HCPCS: 87426; 99213; G0463

== ENCOUNTER 2023-12-21 14:33 | Emergency (ER) | payer OTHER, SELFPAY ==
[2023-12-21 14:45] VITALS: BP 136/85; PULSE 68; RESP 20; TEMP 36.7; O2SAT 97
--- NOTE | 2023-12-21 14:52 | ED.URI ---
HPI - URI/Sore Throat General Chief Complaint: Upper Respiratory Infection Stated Complaint: upper respiratory Time Seen by Provider: 12/21/23 14:48 Source: patient Mode of arrival: ambulatory Limitations: no limitations History of Present Illness HPI Narrative: 43 year female presented for complaint cough and wheezing for 2 days. States her symptoms started with mild sore throat and nasal congestion the progressed, stating she slept most of today. Patient's smokes 1 pack per day. Used albuterol inhaler yesterday. Denies shortness breath unless she has a coughing fit. Denies nausea, vomiting, diarrhea, fevers or chills. Related Data Allergies Allergy/AdvReac Type Severity Reaction Status Date / Time amoxicillin Allergy Unknown Hives Verified 12/21/23 14:35 ciprofloxacin Allergy Unknown Swelling Verified 12/21/23 14:35 Penicillins Allergy Unknown Hives Verified 12/21/23 14:35 Review of Systems Review of Systems: CONSTITUTIONAL: Denies body aches, fever, chills, or sweats. EYES: Denies visual changes, redness, or discharge. ENT: Reports rhinorrhea, congestion, Denies sore throat, or otalgia. CARDIOVASCULAR: Denies chest pain, palpitations, or edema. RESPIRATORY: Reports cough, wheezing. GASTROINTESTINAL: Denies abdominal pain, nausea, vomiting, or diarrhea. SKIN: Denies rash, itching, or wounds. MUSCULOSKELETAL: Denies back pain, joint pain, or myalgia. NEUROLOGIC: Denies headache, numbness, tingling, or weakness. All systems reviewed & are unremarkable except as noted in HPI and below PMFSH Past Medical History Medical History Anxiety Mastitis Migraines PTSD (post-traumatic stress disorder) Surgical History Surgical History H/O Spinal surgery C3-4 fusion Hx of appendectomy Family History Family History Unknown No problems noted. Social History Social History Smoking status: Current every day smoker Living arrangements: with family Gender identity (if verbalized by the patient): Female Spiritual care concerns: No Comments At time of signature, I have reviewed and agree with nursing past medical, surgical, social and family history unless otherwise noted. Please see nursing chart for further information. There is no relevant family history pertinent to the presenting complaint Exam Narrative: GENERAL: mildly ill-appearing, in no acute distress. EYES: EOMI. No redness or drainage. Conjunctivae normal. ENT: Mucous membranes pink and moist. No rhinorrhea. bilateral TMs erythematous, bulging and intact; canal not erythematous, no drainage Throat normal. Uvula midline. NECK: Normal AROM. CHEST: No respiratory distress. end expiratory Wheezing to all angel. frequent moist nonproductive cough noted HEART: Regular rate and rhythm. No murmur appreciated. ABDOMEN: Soft, nontender, nondistended, normal active bowel sounds. SKIN: Warm, dry, no rash. Capillary refill normal. Normal skin turgor. NEURO: Alert and oriented x3. Gait steady. Course Course Emergency Course: Patient is aware of diagnosis, understands and agrees to treatment plan. Anticipatory guidance given. Patient agrees to follow-up as directed and is aware of reasons to seek care at the emergency department. Portions of this record may have been created with voice recognition software Level of Care: Express Care Visit MDM - URI/Sore Throat MDM Narrative Medical decision making narrative: Discussed physical exam findings; bronchitis and bilateral AOM, reviewed prescriptions. patient has an inhaler. Advised supportive measures and signs/symptoms to go to the ER. Pt is appropriate for outpt treatment and f/u. Differential Diagnosis Differential diagnosis: Likely upper respiratory infection, sinu
== END 2023-12-21 15:05 | disposition home or self-care (01) ==
PROVIDERS: Emergency Provider Nurse Practitioner Family
DX: J40 Bronchitis, not specified as acute or chronic (principal); H66.93 Otitis media, unspecified, bilateral
CPT/HCPCS: 99213; G0463